=== PATIENT | female | born 1990 | race Caucasian/White ===

== ENCOUNTER 2022-01-19 10:17 | Emergency (ER) | payer MEDICAID, SELFPAY ==
[2022-01-19 10:18] VITALS: BP 121/67; PULSE 87; RESP 16; TEMP 36.6; O2SAT 99; BMI 29.2
--- NOTE | 2022-01-19 11:30 | RAD_ITS ---
STUDY: X-RAY - LEFT KNEE REASON FOR EXAM: Male, 31 years old. Medial knee pain and bruising. Recent fall. TECHNIQUE: 4 view(s) of the knee. COMPARISON: None. FINDINGS: Normal visualized distal femur. Normal visualized proximal tibia and fibula. Normal proximal tibiofibular articulation. Normal medial femorotibial compartment. Normal lateral femorotibial compartment. Normal patellofemoral articulation. The soft tissue structures are unremarkable. RAD/Knee 4 or More Views IMPRESSION: Normal x-ray examination of the knee. Electronically Signed: Juan Mackey MD at 12:40 EST ,
--- NOTE | 2022-01-19 11:32 | ED.VIS.LOWEX ---
HPI History of Present Illness Chief Complaint: Lower Extremity Injury Narrative Narrative: 31-year-old female presents with injury to her left knee that she sustained 4 days ago. She states she was carrying a laundry basket and fell down 8 stairs, when her leg ended up behind her. She complains of left medial knee pain that is worse with movement and weightbearing. She denies hitting her head or loss of consciousness, no other injury. She states she has not taken any [id number]-cstkfms analgesics because of her history of addiction. She presents for evaluation of her left knee pain that is worse with movement. PFSH PFSH Medical History no medical history Allergy/AdvReac Type Severity Reaction Status Date / Time Sulfa (Sulfonamide Allergy PT UNSURE Verified 01/19/22 10:20 Antibiotics) OF REACTION Social History Smoking Status: Unknown if ever smoked ROS ROS ED ROS Narrative Constitutional: No fever, no chills. HEENT: No sore throat. No neck pain. No loss of vision. No rhinorrhea. Cardiovascular: No chest pain. No palpitations. No pedal edema. Respiratory: No cough, no shortness of breath. Abdominal: No abdominal pain. No nausea. No vomiting. Genitourinary: No dysuria. No hematuria. Musculoskeletal: No myalgias. Left medial knee pain, worse with movement, especially flexion. Neurologic: No headaches. No dizziness. No lightheadedness. Skin: No rash. No change in color. Psychiatric: No depression. No anxiety. EXAM Physical Exam Narrative Exam Narrative: Afebrile. Vital signs noted. HEENT: Normocephalic. Atraumatic. PERRL, EOMI. Neck soft and supple. No point tenderness or step off. Cardiovascular: Regular rate and rhythm. No murmurs, rubs, or gallops appreciated. Respiratory: No tachypnea. Lungs clear to auscultation bilaterally. Gastrointestinal: Abdomen soft, nontender, with normoactive bowel sounds. No rebound or guarding. Neurological: Awake. Alert. Nonfocal, nonlateralizing. Skin: No rash. Normal color. No pallor. Musculoskeletal: No pedal edema. Flexion and extension mechanism of left knee intact. Able to lift leg off bed without difficulty. Neurovascularly intact distally with palpable dorsalis pedis pulse. No medial or lateral malleoli or tenderness or swelling. Mild tenderness to palpation left medial meniscus joint line and along medial collateral ligament. Const Vital Signs: 01/19/22 10:18 Temperature 97.8 F Temperature Source Temporal Pulse Rate 87 Respiratory Rate 16 Blood Pressure 121/67 H Blood Pressure Mean 85 Pulse Ox 99 Oxygen Delivery Method Room Air MDM MDM MDM Narrative Medical decision making narrative: Patient declines any analgesics here in the emergency department orally. X-rays were obtained of the left knee and 4 views and interpreted by myself. My interpretation of her x-ray shows no evidence of acute fracture. At this point in time, she will be placed in an Arpan wrap and continue ice and elevation at home and can take fkyh-hqv-szjrjeo analgesics as needed. She will follow-up with her primary care provider in the next 7 to 10 days for further evaluation and treatment as needed. Disposition is discharged home in stable condition. Return instructions were reviewed. Radiography Diagnostic Testing: Clinical Impression(s) from Imaging Studies Knee X-Ray 01/19/22 11:30 IMPRESSION: Normal x-ray examination of the knee. Electronically Signed: Juan Mackey MD at 12:40 EST , Discharge Plan Triage Chief Complaint: Lower Extremity Injury ED Provider: Bryon Reed Dx/Rx/DC Orders Clinical Impression: Fall down stairs, Left knee sprain Instructions: ED Mechanical Fall, ED Knee Sprain Primary Care Provider: Leonel Schreiber Referrals: [facility] Doctor,Out of [Non-Staff] - Activity Restrictions/Additional Instructions: Follow-up with your primary care provider in 1 week. Continue ice and elevation of left knee. Disposition Disposition: Home, Self Care
[2022-01-19 13:07] VITALS: BP 109/63; PULSE 76; RESP 18; O2SAT 100
== END 2022-01-19 13:11 | disposition home or self-care (01) ==
PROVIDERS: Emergency Provider Emergency Medicine; PCP Family Medicine; Visit Provider Emergency Medicine
DX: S83.92XA Sprain of unspecified site of left knee, initial encounter (principal); W10.9XXA Fall (on) (from) unspecified stairs and steps, initial encounter
CPT/HCPCS: 73564; 99282

== ENCOUNTER 2022-02-24 21:03 | Inpatient (IN) | payer MEDICAID, SELFPAY ==
[2022-02-24 21:05] VITALS: BP 116/66; PULSE 93; RESP 16; TEMP 35.8; O2SAT 98; BMI 31.1
[2022-02-25 00:51] VITALS: BP 110/60; PULSE 76; RESP 18; O2SAT 97
--- NOTE | 2022-02-25 02:21 | EX.ED.DYSGE1 ---
HPI History of Present Illness Chief Complaint: Substance Abuse Narrative Narrative: Patient is a 31-year-old female with past medical history of hepatitis C herpes and previous opioid and methamphetamine abuse. She states roughly 1 year ago she went to correction and from this went to rehab at [facility] and has been sober for 7 months. She states that 1 week ago she relapsed and began injecting fentanyl and methamphetamines daily. She states that she knows this is not good for her and she presents today seeking detox and rehab. She denies any homicidal or suicidal ideations [facility] Medical History Asthma delivery delivered Hepatitis C Herpes Home Medications hydroxyzine pamoate 25 mg capsule 25 mg PO PRN PRN Anxiety 02/25/22 [History Last Taken Unknown] sofosbuvir 400 mg-velpatasvir 100 mg tablet 1 tab PO QHS 02/25/22 [History Last Taken Unknown] Allergy/AdvReac Type Severity Reaction Status Date / Time Sulfa (Sulfonamide Allergy PT UNSURE Verified 02/24/22 21:05 Antibiotics) OF REACTION Social History Smoking Status: Current some day smoker tobacco type: e-cigarettes ROS ROS ED Constitutional Constitutional ED: Denies chills or fever(s) Eyes Eyes: Denies change in vision ENT ENT ED: Denies sore throat Cardiovascular Cardiovascular: Denies chest pain Respiratory/Chest Respiratory/Chest: Denies cough or dyspnea Gastrointestinal Gastrointestinal: Denies abdominal pain, diarrhea, nausea or vomiting Genitourinary Genitourinary ED: Denies dysuria Musculoskeletal Musculoskeletal: Denies myalgias Integumentary Denies rash Neurologic Neurologic: Denies headache(s) Psychiatric Psychiatric: Denies suicidal ideation or suicidal thoughts Hematologic/Lymphatic Hematologic/Lymphatic: Denies easy bleeding or easy bruising EXAM Physical Exam Const Vital Signs: 02/24/22 21:05 02/25/22 00:51 Temperature 96.5 F L Temperature Source Temporal Pulse Rate 93 76 Respiratory Rate 16 18 Blood Pressure 116/66 110/60 Blood Pressure Mean 82 76 Pulse Ox 98 97 Oxygen Delivery Method Room Air Room Air Positive well nourished and well developed General Appearance ED: well developed HEENT Reports moist mucous membranes Eyes PERRL and EOMs intact bilaterally Neck supple Resp normal respiratory effort and clear to auscultation bilaterally Cardio regular rate and regular rhythm GI non-tender, non-distended and no masses Auscultation: hypoactive bowel sounds Palpation: soft Extremity Extremity Narrative: Patient has track wall to the bilateral upper extremities consistent with her report of 1 week of injecting fentanyl and methamphetamines but there are no secondary changes to suggest infection no bony deformity or joint effusions Neuro oriented x3, CN's II-XII intact bilaterally and no sensory deficits noted Sensorium / Orientation: alert Psych mental status grossly normal Psych Narrative: No homicidal or suicidal ideation Skin Skin Narrative: Track wall to the bilateral arms as documented above without secondary changes to suggest infection MDM MDM MDM Narrative Medical decision making narrative: Patient presented to the ER with stable vitals and history and exam consistent with polysubstance abuse but no signs of secondary infection. The case was discussed with medicine as the patient is seeking detox and has done well within the past. At this time they agree to accept the patient to the detox program. As her physical exam does not offer signs of infection and vitals are stable I do not feel there is need for blood work and she is otherwise safe for admission Discharge Plan Triage Chief Complaint: Substance Abuse ED Provider: Nic Bañuelos Dx/Rx/DC Orders Clinical Impression: Polysubstance abuse, Desire for detoxification Prescriptions: No Action hydroxyzine pamoate 25 mg capsule 25 mg PO PRN PRN (Reason: Anxiety) sofosbuvir-velpatasvir 400-100 mg tablet 1 tab PO QHS Primary Care Provider: Leonel Schreiber Referrals: Leonel Schreiber MD [Primary Care Provider] - Disposition Disposition: Acute Care Hospital [facility]
[2022-02-25 02:35] VITALS: BP 120/82; PULSE 65; RESP 18; TEMP 36.3; O2SAT 100
--- NOTE | 2022-02-25 02:40 | PCM.HP.STD ---
HPI - General General Date of Admission: 02/25/22 Date of Service: 02/25/22 Chief Complaint: Desire for detoxification HPI Narrative BRIA MORTENSEN, is a 31 F with a significant history of hepatitis C and polysubstance abuse who presents emergency department for detoxification. Patient uses fentanyl and methamphetamine. About a year ago he got arrested and then followed up with [facility] and became clean for several months unable fentanyl and methamphetamine. However 1 week ago she began using both. Fentanyl: He uses about 2 g/day. Last time he used was about 2 hours ago. 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 Methamphetamine use: She has been started about 2 to 3 g/day. Last time she used was about 8 before presentation. Again she started using when she was about age 28. [facility] Medical History Asthma Hepatitis C Herpes Home Medications hydroxyzine pamoate 25 mg capsule 25 mg PO TID PRN Anxiety 02/25/22 [History Last Taken Unknown] naltrexone microspheres 380 mg intramuscular suspension,extended release (Vivitrol) mg IM QMONTH Check with primary doctor 02/25/22 [History Last Taken Unknown] sofosbuvir 400 mg-velpatasvir 100 mg tablet 1 tab PO QHS 02/25/22 [History Last Taken Unknown] Allergy/AdvReac Type Severity Reaction Status Date / Time Sulfa (Sulfonamide Allergy PT UNSURE Verified 02/24/22 21:05 Antibiotics) OF REACTION Family History Other Heart disease Surgical History delivery delivered Social History Smoking Status: Current some day smoker tobacco type: e-cigarettes ROS ROS Narrative Pertinent positives and pertinent negatives as noted in HPI. All other systems were reviewed and are negative Vital Signs Vital Signs Vital Signs: 02/24/22 21:05 02/25/22 00:51 02/25/22 02:35 Temperature 96.5 F L 97.4 F L Temperature Source Temporal Temporal Pulse Rate 93 76 65 Respiratory Rate 16 18 18 Blood Pressure 116/66 110/60 120/82 H Blood Pressure Mean 82 76 94 Pulse Ox 98 97 100 Oxygen Delivery Method Room Air Room Air Room Air Weight Weight: 77.111 kg Body Mass Index (BMI) 31.1 Physical Exam Narrative Physical exam: General: Well-nourished, well-developed. Head: Normocephalic, atraumatic, no tenderness Eyes: Vision is grossly intact. EOMI ENT, no trauma, moist mucous membranes, no rhinorrhea Neck: Nontender, No thyromegaly. CVS: Regular rate and rhythm. S1-S2 present. No murmur, gallop or rub. Respiratory : clear to auscultation bilaterally, chest wall nontender, no wheezing Abdomen: Soft, nontender, nondistended, normal bowel sounds, no masses : Deferred Back: Nontender, no CVA tenderness, no midline spinal tenderness, deformities, step-offs Extremities: Nontender full range of motion, no trauma Skin: Normal color, no trauma, abrasions Neuro: Alert, oriented, cranial nerves II through XII grossly intact. Psychiatry: Normal mood. Normal affect. Not depressed. Not anxious. Assessment & Plan Assessment/Plan (1) Methamphetamine abuse: (2) Opioid abuse: (3) Tobacco abuse: PLAN: Plan Opioid dependence and withdrawal Patient be started on Subutex and other adjunctive medications: Gabapentin as needed; dicyclomine as needed; Vistaril as needed; methocarbamol as needed; clonidine as needed; Imodium as needed; trazodone as needed and Zofran as needed. Monitor COWS and CINA score Methamphetamine abuse Counseled Tobacco abuse Counseled DVT prophylaxis Low risk Encourage to ambulate Charges/Coding Visit Charges Inpatient E&M: 35584 Init Hosp L2
[2022-02-25 02:51] LABS: Internal QC Validated? YES +Cl - CLEAR BKGD; Pregnancy, Urine Negative Negative
[2022-02-25 03:55] VITALS: BP 119/59; PULSE 69; RESP 16; TEMP 36.6; O2SAT 100; BMI 31.1
--- NOTE | 2022-02-25 09:12 | NURSING ---
02/25/21@ 0830- Sent home dose of Epclusa down to pharmacy for inpatient use.
[2022-02-25] MEDS: Methocarbamol 750 MG Tablet 1500 MG PO (09:36)
--- NOTE | 2022-02-25 12:46 | ADDICTION ---
This clinical writer met with PT to conduct ASAM, MSE, AUDIT assessments and to plan for d/c. PT A+Ox4 and participated actively. All assessments completed and placed in PT's chart. [facility] They will have a bed for her Tuesday morning. Pt reported that she has a safe place to stay if she is d/c's prior to Tuesday. PT did not indicate a need for transportation post d/c from [facility].
--- NOTE | 2022-02-25 17:15 | NURSING ---
02/25/22@ 1715- Report called to ANOOP Cota on [facility].
[2022-02-25] MEDS: SOFOSBUVIR PO (19:44)
[2022-02-25] MEDS: VELPATASVIR PO (19:44)
[2022-02-25 20:17] VITALS: BP 100/57; PULSE 62; RESP 17; TEMP 36.6; O2SAT 99
[2022-02-25] MEDS: Buprenorphine HCl 2 MG TAB.SUBL SL (20:44)
[2022-02-26 01:31] VITALS: BP 94/49; PULSE 63; RESP 16; TEMP 36.6; O2SAT 97
[2022-02-26 05:36] VITALS: BP 98/62; PULSE 60; RESP 16; TEMP 36.9; O2SAT 98
[2022-02-26] MEDS: Buprenorphine HCl 2 MG TAB.SUBL SL ×3 (05:39→20:54)
--- NOTE | 2022-02-26 11:52 | PCM.PN.HOSP ---
Subjective Subjective Resting, no issues overnight Objective Data Objective Data Vital Signs: Vital Signs Temp Pulse Resp BP Pulse Ox O2 Del Method 98.4 F 60 16 98/62 98 Room Air 02/26/22 05:36 02/26/22 05:36 02/26/22 05:36 02/26/22 05:36 02/26/22 05:36 02/26/22 05:36 Oxygen Delivery Method Room Air Weight: 170 lb Body Mass Index (BMI) 31.1 Intake & Output: Intake and Output for Last 24 Hours 02/25/22 02/26/22 02/27/22 03:59 03:59 03:59 Intake Total 1040 / 1040 Balance 1040 / 1040 Physical Exam Narrative General: Alert, Oriented x3, Cooperative, No apparent distress HEENT: Atraumatic, PERRLA, EOMI, Normocephalic Oral: Moist Mucosa Neck: Supple, No JVD Lungs: Clear to auscultation, Normal air movement, No rhonchi, No wheeze, No rales Cardiovascular: Regular rate, Regular Rhythm, Normal S1, Normal S2, No murmurs Abdomen: Soft, Non Tender, Non-Distended, No Hepato-splenomegaly Extremities: No edema, Capillary Refill Less than 3 Seconds Skin: No rashes, No breakdown Musculoskeletal: No Tenderness to Palpation of Joints or Extremities Neurological: Cranial nerves II-XII grossly intact, Motor Exam 5/5 strength throughout, Sensory exam intact to light touch and pain Psych/Mental Status: Normal Affect, Appropriate Assessment & Plan Assessment/Plan (1) Methamphetamine abuse: (2) Opioid abuse: (3) Tobacco abuse: PLAN: Plan 1. Opioid detox/methamphetamine abuse/tobacco abuse/hepatitis C ? Continue with the opiate withdrawal protocol, CIWA score of 0 ? We will have her follow-up with [facility] ? Discussed cessation of both methamphetamine and tobacco ? Given her continued IV drug use, she is likely no longer a candidate for antiviral therapy for her hepatitis C DVT: Ambulation Charges/Coding Visit Charges Inpatient E&M: 51961 Subs Hosp L2
[2022-02-26 12:07] VITALS: BP 98/51; PULSE 60; RESP 14; TEMP 36.8; O2SAT 98
[2022-02-26 17:33] VITALS: BP 98/54; PULSE 60; RESP 14; TEMP 36.9; O2SAT 98
[2022-02-26 20:50] VITALS: BP 109/61; PULSE 60; RESP 18; TEMP 36.6; O2SAT 97
[2022-02-26] MEDS: Methocarbamol 750 MG Tablet 1500 MG PO (20:54)
[2022-02-26] MEDS: SOFOSBUVIR PO (20:55)
[2022-02-26] MEDS: VELPATASVIR PO (20:55)
[2022-02-27] MEDS: Buprenorphine HCl 2 MG TAB.SUBL SL ×2 (03:56→12:01)
[2022-02-27 03:57] VITALS: BP 116/59; PULSE 65; RESP 16; TEMP 36.6; O2SAT 99
--- NOTE | 2022-02-27 07:15 | DCINST_ITS ---
Discharge Instructions Diet Discharge Diet: No restrictions Activity Discharge Activity: Return to Normal Activity Dressing / Incision Call your doctor if you observe: Fever of 101 or Higher, Shortness of breath, Dizziness, Fainting spells, Swelling in the ankles, Chest pain and Increased palpitations (irregular heartbeat) Follow Up Care Test Results: Test results from this visit will be discussed in further detail at your follow- up appointment, if applicable. Discharge Plan Admission Admit Date/Time: 02/25/22 02:11 Attending Provider: Omid Umaña Primary Care Provider: Leonel Schreiber Consulting Providers: Adin Stern Discharge Orders/Prescriptions Prescriptions: Continued hydroxyzine pamoate 25 mg capsule 25 mg PO TID PRN (Reason: Anxiety) sofosbuvir-velpatasvir 400-100 mg tablet 1 tab PO QHS Vivitrol 380 mg suspension,extended rel recon IM QMONTH Referrals / Follow Up: Leonel Schreiber MD [Primary Care Provider] - Disposition Disposition (needs filled in before D/C Order can be placed): Home, Self Care
[2022-02-27 09:00] VITALS: BP 102/59; PULSE 78; RESP 14; TEMP 36.6; O2SAT 99
--- NOTE | 2022-02-27 09:23 | PCM.DC.SUM ---
Providers Date of Admission: 02/25/22 Primary Care Physician: Dr. Leonel Schreiber MD Reason For Visit: DESIRE FOR DETOXIFICATION Diagnosis Discharge Diagnosis (1) Methamphetamine abuse: Status: Acute Code(s): F15.10 - Other stimulant abuse, uncomplicated (2) Opioid abuse: Status: Acute Code(s): F11.10 - Opioid abuse, uncomplicated (3) Tobacco abuse: Status: Acute Code(s): Z72.0 - Tobacco use Plan 1. Opioid detox/methamphetamine abuse/tobacco abuse/hepatitis C ? Continue with the opiate withdrawal protocol, CIWA score of 0 ? We will have her follow-up with [facility] ? Discussed cessation of both methamphetamine and tobacco ? Given her continued IV drug use, she is likely no longer a candidate for antiviral therapy for her hepatitis C DVT: Ambulation Medications at Discharge Home Medications hydroxyzine pamoate 25 mg capsule 25 mg PO TID PRN Anxiety 02/25/22 naltrexone microspheres 380 mg intramuscular suspension,extended release (Vivitrol) mg IM QMONTH Check with primary doctor 02/25/22 sofosbuvir 400 mg-velpatasvir 100 mg tablet 1 tab PO QHS 02/25/22 Hospital Course Operations None Procedures None Summary of Care Provided Minutes Spent on Discharge: 35 Hospital Course: Per HPI: BRIA MORTENSEN, is a 31 F with a significant history of hepatitis C and polysubstance abuse who presents emergency department for detoxification.? Patient uses fentanyl and methamphetamine.? About a year ago he got arrested and then followed up with [facility] and became clean for several months unable fentanyl and methamphetamine.? However 1 week ago she began using both. Fentanyl: He uses about 2 g/day.? Last time he used was about 2 hours ago.? He shoots.? He began using at about age 28 years.? Methamphetamine use: She has been started about 2 to 3 g/day.? Last time she used was about 8 before presentation.? Again she started using when she was about age 28. Hospital Course: 1.? Opioid detox/methamphetamine abuse/tobacco abuse/hepatitis C ? Continue with the opiate withdrawal protocol, CINA score of 0 ? We will have her follow-up with [facility] ? Discussed cessation of both methamphetamine and tobacco ? Given her continued IV drug use, she is likely no longer a candidate for antiviral therapy for her hepatitis C ? Plan for discharge today, unfortunately she does have to go to care home which she is aware of Physical Exam Narrative General: Alert, Oriented x3, Cooperative, No apparent distress HEENT: Atraumatic, PERRLA, EOMI, Normocephalic Oral: Moist Mucosa Neck: Supple, No JVD Lungs: Clear to auscultation, Normal air movement, No rhonchi, No wheeze, No rales Cardiovascular: Regular rate, Regular Rhythm, Normal S1, Normal S2, No murmurs Abdomen: Soft, Non Tender, Non-Distended, No Hepato-splenomegaly Extremities: No edema, Capillary Refill Less than 3 Seconds Skin: No rashes, No breakdown Musculoskeletal: No Tenderness to Palpation of Joints or Extremities Neurological: Cranial nerves II-XII grossly intact, Motor Exam 5/5 strength throughout, Sensory exam intact to light touch and pain Psych/Mental Status: Normal Affect, Appropriate Weight / BMI Weight Weight: 170 lb Body Mass Index (BMI) 31.1 D/C Instructions Discharge Diet: No restrictions Call your doctor if you observe: Fever of 101 or Higher, Shortness of breath, Dizziness, Fainting spells, Swelling in the ankles, Chest pain and Increased palpitations (irregular heartbeat) Meaningful Use Info Meaningful Use Diagnoses (Choose all that apply): None applicable Discharge Plan Admission Admit Date/Time: 02/25/22 02:11 Attending Provider: Omid Umaña Primary Care Provider: Leonel Schreiber Consulting Providers: Adin Stern Discharge Orders/Prescriptions Prescriptions: Continued hydroxyzine pamoate 25 mg capsule 25 mg PO TID PRN (Reason: Anxiety) sofosbuvir-velpatasvir 400-100 mg tablet 1 tab PO QHS Vivitrol 380 mg suspension,extended rel recon IM QMONTH Referrals / Follow Up: Leonel Schreiber MD [Primary Care Provider] - Disposition Disposition (needs filled in before D/C Order can be placed): Home, Self Care Charges/Coding Visit Charges Inpatient E&M: 06395 Disch Hosp >30min
== END 2022-02-27 12:29 | disposition home or self-care (01) | DRG 773 ==
LOC: ED 02-25 02:25 → MS3 02-25 04:28 → MS2 02-25 17:52
PROVIDERS: Admitting Provider Hospitalist; Emergency Provider Emergency Medicine; PCP Family Medicine; Visit Provider Family Medicine
DX: F11.23 Opioid dependence with withdrawal (principal); F15.10 Other stimulant abuse, uncomplicated; F17.210 Nicotine dependence, cigarettes, uncomplicated; Z86.19 Personal history of other infectious and parasitic diseases
CPT/HCPCS: 81025; 99283